=== PATIENT | male | born 1965 | race Caucasian/White ===

== ENCOUNTER 2018-05-29 17:40 | Inpatient (IN) ==
[2018-05-29] MEDS ORDERED: SODIUM CHLORIDE 0.9% 500 ML IV SCH (18:30)
--- NOTE | 2018-05-29 19:13 | XRay Report ---
SINGLE VIEW CHEST CLINICAL HISTORY: Fall. FINDINGS: An AP, portable, semierect chest radiograph is obtained. No prior studies are available for comparison at the time of dictation. The examination is degraded by portable technique and patient r otation. The heart is top normal for projection. The mediastinal contour is within normal limits. Th ere is bibasilar atelectasis. No airspace consolidation or large pleural effusion is identified. No p neumothorax is seen. The bony thorax is grossly intact. IMPRESSION: No acute cardiopulmonary abnormality. Electronically signed by: Kel Bradley M.D. 05/29/2018 7:11 PM
[2018-05-29] MEDS ORDERED: LORazepam 1 MG/2 ML VIAL IV STA ×2 (19:31→20:48)
[2018-05-29] MEDS: LORazepam 2 MG/4 ML VIAL ONE ×2 (19:31→19:34)
--- NOTE | 2018-05-29 19:34 | CT Scan Report ---
CT SCAN OF THE BRAIN WITHOUT IV CONTRAST CLINICAL HISTORY: Fall. Seizure. COMPARISON STUDY: No priors. TECHNIQUE: Unenhanced axial CT scan of the brain is performed from the vertex to the skull base. A d ose lowering technique was utilized adhering to the principles of ALARA. The skull base was scanned t wice due to motion artifact. CT DOSE: 1291.70 mGy.cm FINDINGS: Brain parenchyma: The brain parenchyma is normal in appearance. There is no hemorrhage, mass effect, or evidence of acute territorial ischemia by CT criteria. Bey-white matter differentiation is preser beverley. No extra-axial fluid collection is seen. Ventricles, sulci, cisterns: Normal in configuration. Intracranial vasculature: There is atherosclerotic calcification of the cavernous carotid arteries. Calvarium: No depressed calvarial fracture is identified. Soft tissues: There is a right supraorbital and periorbital soft tissue contusion. Sinuses and mastoids: The visualized paranasal sinuses are clear. The mastoid air cells are well pneu matized. Orbits: The bony orbits are grossly intact. IMPRESSION: 1. There is no hemorrhage, mass effect, or evidence of acute territorial ischemia by CT criteria. 2. Right frontal scalp injury. Electronically signed by: Kel Bradley M.D. 05/29/2018 7:32 PM
[2018-05-29 19:38] LABS: Alanine Aminotransferase 48 U/L (12-78); Albumin Level 4.1 gm/dl (3.4-5.0); Aspartate Aminotransferase 29 U/L (15-37); BUN Creatinine Ratio 10.9 (10-20); Blood Urea Nitrogen 9 mg/dl (7-18); Calcium 9.4 mg/dl (8.5-10.1); Carbon Dioxide 28 mmol/L (21-32); Chloride 103 mmol/L (98-107); Est GFR (African American) 118.6; Est GFR (Non-African American) 102.3; Glucose 107 mg/dl (70-99); Magnesium 2.4 mg/dl (1.8-2.4); Potassium 3.4 mmol/L (3.5-5.1); Sodium 137 mmol/L (136-145)
--- NOTE | 2018-05-29 19:38 | CT Scan Report ---
CT SCAN OF THE CERVICAL SPINE CLINICAL HISTORY: Fall. Seizure. COMPARISON STUDY: No priors TECHNIQUE: CT scan of the cervical spine is performed from the skull base to the upper thoracic spine . Images are reviewed in the axial, sagittal, and coronal planes. IV contrast was not administered fo r this examination. A dose lowering technique was utilized adhering to the principles of ALARA. FINDINGS: Skeletal structures: The skeletal structures are well mineralized. There is no evidence of fracture o r subluxation involving the cervical spine. Vertebral body height and alignment are maintained. There is straightening of the cervical lordosis. Anterior osteophytes are seen throughout. The odontoid pr ocess and lateral masses are intact. The atlantoaxial articulation is preserved noting mild productiv e degenerative change. The spinous processes appear intact. Intervertebral discs: Mild disc space narrowing is seen at C5-C6 and C6-C7. Central canal: Grossly patent. Soft tissues: The prevertebral and paraspinous soft tissues are within normal limits. There is athero sclerotic calcification of the carotid bulbs. Calvarium: The visualized calvarium at the skull base appears intact. Brain parenchyma: Partially visualized brain parenchyma the skull base is within normal limits. Sinuses and mastoids: The visualized paranasal sinuses are clear. The mastoid air cells are well pneu matized. Lung apices: Clear as visualized. IMPRESSION: There is no evidence of fracture or subluxation involving the cervical spine. Electronically signed by: Kel Bradley M.D. 05/29/2018 7:37 PM
[2018-05-29 19:41] LABS: Albumin Globulin Ratio 1.1 (0.9-2); Alkaline Phosphatase 95 U/L (45-117); Bilirubin,Total 0.5 mg/dl (0.2-1); Globulin 3.8 gm/dl (2.5-4.0); Total Protein 7.9 gm/dl (6.4-8.2)
[2018-05-29 19:46] LABS: Basophils # (auto) 0.03 K/uL (0-0.2); Basophils % (auto) 0.4 %; Eosinophils # (auto) 0.06 K/uL (0-0.5); Eosinophils % (auto) 0.7 %; Hematocrit (blood only) 42.6 % (42-52); Hemoglobin 14.7 g/dL (14.0-18.0); Immature Granulocytes # (auto) 0.02 K/uL (0.00-0.02); Immature Granulocytes % (auto) 0.2 %; Lymphocytes # (auto) 1.52 K/uL (1.2-3.4); Lymphocytes % (auto) 17.8 %; Mean Corpuscular Hgb Conc 34.5 g/dL (32-36); Mean Corpuscular Volume 98.6 fL (80-100); Mean Platelet Volume 10.3 fL (7.4-10.4); Monocytes # (auto) 0.84 K/uL (0.11-0.59); Monocytes % (auto) 9.8 %; Neutrophils # (auto) 6.09 K/uL (1.4-6.5); Neutrophils % (auto) 71.1 %; Platelet Count 322 K/uL (130-400); RDW Coefficient of Variation 15.5 % (11.5-14.5); RDW Standard Deviation 56.2 fL (36.4-46.3); Red Blood Count 4.32 M/uL (4.7-6.1); White Blood Count 8.56 K/uL (4.8-10.8)
--- NOTE | 2018-05-29 20:08 | Emergency Department Note ---
Entered by Yolie Paniagua acting as a scribe for Gonzalo Rosenbaum M.D. History of Present Illness General Chief complaint: Seizure Stated complaint: SEIZURE Time Seen by Provider: 05/29/18 18:14 Source: patient and other (EMS, [facility] Nurse) Mode of arrival: EMS Limitations: altered mental status History of Present Illness Provider complaint: Seizure Onset (ago): hour(s) less than 1 Location: head Severity: moderate Treatments prior to arrival: none Patient is a 52 year old male presenting to the ED via EMS with seizure that occurred [employer]. Per EMS, patient is reporting from [facility] where he was smoking outside on the patio and collapsed. Patient was reported to fall and his the left side of his head off the cement, and began to have a tonic clonic seizure for 1 minute. [facility] nurse notes that respiratory seemed as if patient was snoring. After the seizure, patient was reported to be weak and disoriented. Patient has not received medications after the seizure from [facility] and from EMS. Per nurse, patient has a history of alcohol abuse, seizures, schizophrenia , anxiety and depression. Nurse reports he has been scattered and not oriented since. Nurse reports patient has been at the [facility] since 05/20/18 and has been scoring low on alcohol withdrawal scale. When asked the year, patient responded with 1991 and 2001. HPI limited due to patients cognitive status. Home Medications Home Medications Medication Instructions Recorded Confirmed Type Mylanta 30 ml PO Q4H PRN 05/29/18 05/29/18 History acetaminophen 650 mg PO Q4H PRN 05/29/18 05/29/18 History bismuth subsalicylate 524 mg PO DIRECTED PRN 05/29/18 05/29/18 History [Pepto-Bismol] clonidine HCl 0.1 mg PO BID 05/29/18 05/29/18 History fluoxetine 40 mg PO QAM 05/29/18 05/29/18 History folic acid 1 mg PO QAM 05/29/18 05/29/18 History lithium carbonate 450 mg PO AMHS 05/29/18 05/29/18 History magnesium hydroxide [Milk of 80 meq PO DAILY PRN 05/29/18 05/29/18 History Magnesia] multivitamin 1 tab PO QAM 02/19/19 02/19/19 History quetiapine [Seroquel] 50 mg PO BID 05/29/18 05/29/18 History quetiapine [Seroquel] 800 mg PO HS 05/29/18 05/29/18 History thiamine HCl (vitamin B1) 100 mg PO QAM 05/29/18 05/29/18 History Allergies Allergy/AdvReac Type Severity Reaction Status Date / Time fluphenazine [From Prolixin] Allergy Unknown Unknown Verified 05/29/18 19:37 haloperidol [From Haldol] Allergy Unknown Unknown Verified 05/29/18 19:37 Past Med/Surg History Medical History Seizure (Chronic) Alcohol abuse (Chronic) Depression (Chronic) Anxiety (Chronic) Schizophrenia (Chronic) Family History Other Family history non-contributory Social History Smoking Status: Unknown if ever smoked Review of Systems See HPI for pertinent positives & negatives. Unobtainable due to cognitive status Physical Exam Vital Signs Vital Signs - 24 hr 05/29/18 17:46 05/29/18 17:54 05/29/18 17:55 Temperature 37.1 C Temperature Source Oral Sepsis Recent Fever Within 48 Hours No Sepsis Action Taken by Nursing No Action Required Pulse Rate 83 86 87 Pulse Rate from SpO2 Sensor 83 89 Respiratory Rate 19 28 H 26 H Respiratory Depth Shallow Respiratory Pattern Tachypnea Blood Pressure 154/95 H 154/95 H Blood Pressure Mean 114 114 Pulse Oximetry 96 96 95 Oxygen Delivery Method Room Air 05/29/18 18:00 05/29/18 18:04 05/29/18 18:10 Temperature Temperature Source Sepsis Recent Fever Within 48 Hours Sepsis Action Taken by Nursing Pulse Rate 85 83 Pulse Rate from SpO2 Sensor 85 84 Respiratory Rate 17 20 Respiratory Depth Respiratory Pattern Blood Pressure Blood Pressure Mean Pulse Oximetry 97 96 96 Oxygen Delivery Method Room Air 05/29/18 18:20 05/29/18 18:30 05/29/18 18:40 Temperature Temperature Source Sepsis Recent Fever Within 48 Hours Sepsis Action Taken by Nursing Pulse Rate 83 81 80 Pulse Rate from SpO2 Sensor 83 81 81 Respiratory Rate 18 21 21 Respiratory Depth Respiratory Pattern Blood Pressure Blood Pressure Mean Pulse Oximetry 97 98 98 Oxygen Delivery Method 05/29/18 18:50 05/29/18 19:00 05/29/18 19:10 Temperature Temperature Source Sepsis Recent Fever Within 48 Hours Sepsis Action Taken by Nursing Pulse Rate 80 78 82 Pulse Rate from SpO2 Sensor 79 Respiratory Rate 24 25 H 23 Respiratory Depth Respiratory Pattern Blood Pressure Blood Pressure Mean Pulse Oximetry 100 Oxygen Delivery Method 05/29/18 19:29 05/29/18 19:30 05/29/18 19:31 Temperature Temperature Source Sepsis Recent Fever Within 48 Hours Sepsis Action Taken by Nursing Pulse Rate 138 H 126 H 108 H Pulse Rate from SpO2 Sensor 109 H Respiratory Rate 19 33 H 22 Respiratory Depth Respiratory Pattern Blood Pressure 176/116 H Blood Pressure Mean 136 Pulse Oximetry 97 Oxygen Delivery Method 05/29/18 19:40 05/29/18 19:50 05/29/18 20:00 Temperature Temperature Source Sepsis Recent Fever Within 48 Hours Sepsis Action Taken by Nursing Pulse Rate 105 H 101 H 101 H Pulse Rate from SpO2 Sensor 105 H 102 H 102 H Respiratory Rate 32 H 17 14 Respiratory Depth Respiratory Pattern Blood Pressure Blood Pressure Mean Pulse Oximetry 96 96 97 Oxygen Delivery Method 05/29/18 20:10 05/29/18 20:17 05/29/18 20:20 Temperature Temperature Source Sepsis Recent Fever Within 48 Hours Sepsis Action Taken by Nursing Pulse Rate 96 H 93 H 97 H Pulse Rate from SpO2 Sensor 96 H 93 H 95 H Respiratory Rate 27 H 24 21 Respiratory Depth Respiratory Pattern Blood Pressure 115/106 H Blood Pressure Mean 109 Pulse Oximetry 97 94 96 Oxygen Delivery Method 05/29/18 20:30 05/29/18 20:40 05/29/18 20:50 Temperature Temperature Source Sepsis Recent Fever Within 48 Hours Sepsis Action Taken by Nursing Pulse Rate 93 H 91 H 86 Pulse Rate from SpO2 Sensor 92 H 91 H 87 Respiratory Rate 21 20 17 Respiratory Depth Respiratory Pattern Blood Pressure 138/80 Blood Pressure Mean 99 Pulse Oximetry 97 97 96 Oxygen Delivery Method 05/29/18 21:00 05/29/18 21:10 05/29/18 21:20 Temperature Temperature Source Sepsis Recent Fever Within 48 Hours Sepsis Action Taken by Nursing Pulse Rate 94 H 90 86 Pulse Rate from SpO2 Sensor 95 H 90 84 Respiratory Rate 18 31 H 24 Respiratory Depth Respiratory Pattern Blood Pressure 159/109 H Blood Pressure Mean 125 Pulse Oximetry 97 99 93 Oxygen Delivery Method 05/29/18 21:30 05/29/18 21:32 05/29/18 21:36 Temperature Temperature Source Sepsis Recent Fever Within 48 Hours Sepsis Action Taken by Nursing Pulse Rate 88 89 88 Pulse Rate from SpO2 Sensor 89 90 89 Respiratory Rate 19 19 22 Respiratory Depth Respiratory Pattern Blood Pressure 125/80 125/80 Blood Pressure Mean 95 95 Pulse Oximetry 95 95 96 Oxygen Delivery Method 05/29/18 21:40 05/29/18 21:50 05/29/18 22:00 Temperature Temperature Source Sepsis Recent Fever Within 48 Hours Sepsis Action Taken by Nursing Pulse Rate 89 91 H 92 H Pulse Rate from SpO2 Sensor 89 91 H 92 H Respiratory Rate 20 18 23 Respiratory Depth Respiratory Pattern Blood Pressure 121/86 Blood Pressure Mean 97 Pulse Oximetry 96 96 97 Oxygen Delivery Method 05/29/18 22:10 05/29/18 22:20 05/29/18 22:30 Temperature Temperature Source Sepsis Recent Fever Within 48 Hours Sepsis Action Taken by Nursing Pulse Rate 91 H 101 H 91 H Pulse Rate from SpO2 Sensor 92 H 101 H 90 Respiratory Rate 19 24 22 Respiratory Depth Respiratory Pattern Blood Pressure 123/83 Blood Pressure Mean 96 Pulse Oximetry 96 96 95 Oxygen Delivery Method GENERAL: Awake, alert, rambling HENT: Normocephalic, Oropharynx unremarkable. 3x5cm forehead contusion. EYES: Normal conjunctiva. Sclera non-icteric. NECK: Supple. No nuchal rigidity. RESPIRATORY: Clear to auscultation. No wheezes. Normal respiratory effort. CARDIAC: Normal rate. Normal rhythm. Extremities warm and well perfused. GI: Soft, non-distended. No tenderness to palpation. No rebound or guarding. No masses. RECTAL: Deferred. MUSCULOSKELETAL: Atraumatic. Chest examination reveals no tenderness. UPPER EXTREMITIES: Left knuckle abrasion, swollen bursa of right elbow with minimal tenderness LOWER EXTREMITIES: Calves are equal size bilaterally and non-tender. No edema NEURO: Normal sensorium. No facial droop. Moving all extremities, looking around , noncoherent answers SKIN: Warm and dry. No rash or jaundice noted. Course 1818: Past medical records reviewed. The patient was evaluated in room B11B, and a complete history and physical examination were performed. 1926: Alerted by patient of seizure, which lasted 1 minute in length. 1954: Discussed patient case with Dr. Tubbs 2005: Discussed case with Dr. John, who accepts patient for admission. Administered Medications Discontinued Medications Sodium Chloride (Nss) 500 mls @ 999 mls/hr IV .Q31M KEANU Stop: 05/29/18 19:00 Last Infusion: 05/29/18 20:44 Dose: 0 mls/hr Admin: 05/29/18 20:17 Dose: 999 mls/hr Lorazepam (Ativan) 1 mg in 2 mls @ 2 mls/min IV NOW STA Stop: 05/29/18 19:32 Last Admin: 05/29/18 19:32 Dose: 2 mls/min Levetiracetam 1,000 mg/ (Dextrose) 110 mls @ 440 mls/hr IV NOW STA Stop: 05/29/18 20:13 Last Infusion: 05/29/18 20:30 Dose: 0 mls/hr Admin: 05/29/18 20:17 Dose: 440 mls/hr Lorazepam (Ativan) 1 mg in 2 mls @ 2 mls/min IV NOW STA Stop: 05/29/18 20:49 Last Admin: 05/29/18 20:53 Dose: 2 mls/min Levetiracetam 1,000 mg/ (Dextrose) 110 mls @ 440 mls/hr IV NOW STA Stop: 05/29/18 21:02 Last Infusion: 05/29/18 21:20 Dose: 0 mls/hr Admin: 05/29/18 21:05 Dose: 440 mls/hr Lorazepam (Ativan) Confirm Administered Dose 2 mg .ROUTE .STK-MED ONE Stop: 05/29/18 19:29 Last Admin: 05/29/18 19:34 Dose: Not Given Medical Decision Making Differential Diagnosis Differential diagnosis: Etiologies such as infection, hypoglycemia, electrolyte abnormalities, cardiac sources, intracerebral event, trauma, toxicologic, neurologic, as well as others were entertained. Medical Records Attestation: I reviewed the patient's medical records. Home Medications Current Medication List: was personally reviewed by me Laboratory Data Attestation: I reviewed the patient's lab results. Result diagrams: 05/29/18 18:58 05/29/18 18:58 Lab Results 05/29/18 05/29/18 05/29/18 Range/Units 18:58 18:58 18:58 WBC 8.56 (4.8-10.8) K/uL RBC 4.32 L (4.7-6.1) M/uL Hgb 14.7 (14.0-18.0) g/dL Hct 42.6 (42-52) % MCV 98.6 (80-100) fL MCH 34.0 (25-34) pg MCHC 34.5 (32-36) g/dL RDW Std Deviation 56.2 H (36.4-46.3) fL RDW Coeff of Kai 15.5 H (11.5-14.5) % Plt Count 322 (130-400) K/uL MPV 10.3 (7.4-10.4) fL Immature Gran % (Auto) 0.2 % Neut % (Auto) 71.1 % Lymph % (Auto) 17.8 % [place] % (Auto) 9.8 % Eos % (Auto) 0.7 % Baso % (Auto) 0.4 % Immature Gran # (Auto) 0.02 (0.00-0.02) K/uL Neut # (Auto) 6.09 (1.4-6.5) K/uL Lymph # (Auto) 1.52 (1.2-3.4) K/uL [place] # (Auto) 0.84 H (0.11-0.59) K/uL Eos # (Auto) 0.06 (0-0.5) K/uL Baso # (Auto) 0.03 (0-0.2) K/uL Sodium 137 (136-145) mmol/L Potassium 3.4 L (3.5-5.1) mmol/L Chloride 103 (98-107) mmol/L Carbon Dioxide 28 (21-32) mmol/L Anion Gap 6.0 (3-11) BUN 9 (7-18) mg/dl Creatinine 0.78 (0.6-1.4) mg/dl Est Cr Clr Drug Dosing Not Reportable Est GFR ( Amer) 118.6 Est GFR (Non-Af Amer) 102.3 BUN/Creatinine Ratio 10.9 (10-20) Glucose 107 H (70-99) mg/dl POC Glucose (70-99) Calcium 9.4 (8.5-10.1) mg/dl Magnesium 2.4 (1.8-2.4) mg/dl Total Bilirubin 0.5 (0.2-1) mg/dl AST 29 (15-37) U/L ALT 48 (12-78) U/L Alkaline Phosphatase 95 (45-117) U/L Total Protein 7.9 (6.4-8.2) gm/dl Albumin 4.1 (3.4-5.0) gm/dl Globulin 3.8 (2.5-4.0) gm/dl Albumin/Globulin Ratio 1.1 (0.9-2) Urine Color Urine Appearance (Clear) Urine pH (4.5-7.5) Ur Specific [place] (1.000-1.030) Urine Protein (Negative) Urine Glucose (UA) (Negative) Urine Ketones (Negative) Urine Blood (Negative) Urine Nitrite (Negative) Urine Bilirubin (Negative) Urine Urobilinogen (Negative) Ur Leukocyte Esterase (Negative) Urine Opiates Screen (Neg) Ur Methadone, Qual (Neg) Urine Barbiturates (Neg) Ur Phencyclidine (PCP) (Neg) U Amphetamin/Meth Scrn (Neg) MDMA (Ecstasy) Screen (Neg) U Benzodiazepines Scrn (Neg) [place] (0.6-1.2) mmol/L Ur Cocaine Metabolite (Neg) U Marijuana (THC) Screen (Neg) Ethyl Alcohol mg/dL < 3.0 (0-3) mg/dl 05/29/18 05/29/18 05/29/18 Range/Units 18:58 19:38 19:50 WBC (4.8-10.8) K/uL RBC (4.7-6.1) M/uL Hgb (14.0-18.0) g/dL Hct (42-52) % MCV (80-100) fL MCH (25-34) pg MCHC (32-36) g/dL RDW Std Deviation (36.4-46.3) fL RDW Coeff of Kai (11.5-14.5) % Plt Count (130-400) K/uL MPV (7.4-10.4) fL Immature Gran % (Auto) % Neut % (Auto) % Lymph % (Auto) % [place] % (Auto) % Eos % (Auto) % Baso % (Auto) % Immature Gran # (Auto) (0.00-0.02) K/uL Neut # (Auto) (1.4-6.5) K/uL Lymph # (Auto) (1.2-3.4) K/uL [place] # (Auto) (0.11-0.59) K/uL Eos # (Auto) (0-0.5) K/uL Baso # (Auto) (0-0.2) K/uL Sodium (136-145) mmol/L Potassium (3.5-5.1) mmol/L Chloride (98-107) mmol/L Carbon Dioxide (21-32) mmol/L Anion Gap (3-11) BUN (7-18) mg/dl Creatinine (0.6-1.4) mg/dl Est Cr Clr Drug Dosing Est GFR ( Amer) Est GFR (Non-Af Amer) BUN/Creatinine Ratio (10-20) Glucose (70-99) mg/dl POC Glucose 118 H (70-99) Calcium (8.5-10.1) mg/dl Magnesium (1.8-2.4) mg/dl Total Bilirubin (0.2-1) mg/dl AST (15-37) U/L ALT (12-78) U/L Alkaline Phosphatase (45-117) U/L Total Protein (6.4-8.2) gm/dl Albumin (3.4-5.0) gm/dl Globulin (2.5-4.0) gm/dl Albumin/Globulin Ratio (0.9-2) Urine Color Urine Appearance (Clear) Urine pH (4.5-7.5) Ur Specific [place] (1.000-1.030) Urine Protein (Negative) Urine Glucose (UA) (Negative) Urine Ketones (Negative) Urine Blood (Negative) Urine Nitrite (Negative) Urine Bilirubin (Negative) Urine Urobilinogen (Negative) Ur Leukocyte Esterase (Negative) Urine Opiates Screen Neg (Neg) Ur Methadone, Qual Neg (Neg) Urine Barbiturates Neg (Neg) Ur Phencyclidine (PCP) Neg (Neg) U Amphetamin/Meth Scrn Neg (Neg) MDMA (Ecstasy) Screen Neg (Neg) U Benzodiazepines Scrn Neg (Neg) [place] < 0.2 L (0.6-1.2) mmol/L Ur Cocaine Metabolite Neg (Neg) U Marijuana (THC) Screen Neg (Neg) Ethyl Alcohol mg/dL (0-3) mg/dl 05/29/18 Range/Units 19:50 WBC (4.8-10.8) K/uL RBC (4.7-6.1) M/uL Hgb (14.0-18.0) g/dL Hct (42-52) % MCV (80-100) fL MCH (25-34) pg MCHC (32-36) g/dL RDW Std Deviation (36.4-46.3) fL RDW Coeff of Kai (11.5-14.5) % Plt Count (130-400) K/uL MPV (7.4-10.4) fL Immature Gran % (Auto) % Neut % (Auto) % Lymph % (Auto) % [place] % (Auto) % Eos % (Auto) % Baso % (Auto) % Immature Gran # (Auto) (0.00-0.02) K/uL Neut # (Auto) (1.4-6.5) K/uL Lymph # (Auto) (1.2-3.4) K/uL [place] # (Auto) (0.11-0.59) K/uL Eos # (Auto) (0-0.5) K/uL Baso # (Auto) (0-0.2) K/uL Sodium (136-145) mmol/L Potassium (3.5-5.1) mmol/L Chloride (98-107) mmol/L Carbon Dioxide (21-32) mmol/L Anion Gap (3-11) BUN (7-18) mg/dl Creatinine (0.6-1.4) mg/dl Est Cr Clr Drug Dosing Est GFR ( Amer) Est GFR (Non-Af Amer) BUN/Creatinine Ratio (10-20) Glucose (70-99) mg/dl POC Glucose (70-99) Calcium (8.5-10.1) mg/dl Magnesium (1.8-2.4) mg/dl Total Bilirubin (0.2-1) mg/dl AST (15-37) U/L ALT (12-78) U/L Alkaline Phosphatase (45-117) U/L Total Protein (6.4-8.2) gm/dl Albumin (3.4-5.0) gm/dl Globulin (2.5-4.0) gm/dl Albumin/Globulin Ratio (0.9-2) Urine Color Yellow Urine Appearance Clear (Clear) Urine pH 7.0 (4.5-7.5) Ur Specific [place] 1.015 (1.000-1.030) Urine Protein Negative (Negative) Urine Glucose (UA) Negative (Negative) Urine Ketones Negative (Negative) Urine Blood Negative (Negative) Urine Nitrite Negative (Negative) Urine Bilirubin Negative (Negative) Urine Urobilinogen Negative (Negative) Ur Leukocyte Esterase Negative (Negative) Urine Opiates Screen (Neg) Ur Methadone, Qual (Neg) Urine Barbiturates (Neg) Ur Phencyclidine (PCP) (Neg) U Amphetamin/Meth Scrn (Neg) MDMA (Ecstasy) Screen (Neg) U Benzodiazepines Scrn (Neg) [place] (0.6-1.2) mmol/L Ur Cocaine Metabolite (Neg) U Marijuana (THC) Screen (Neg) Ethyl Alcohol mg/dL (0-3) mg/dl Imaging Data Radiologist's Impression: SINGLE VIEW CHEST CLINICAL HISTORY: Fall. FINDINGS: An AP, portable, semierect chest radiograph is obtained. No prior studies are available for comparison at the time of dictation. The examination is degraded by portable technique and patient rotation. The heart is top normal for projection. The mediastinal contour is within normal limits. There is bibasilar atelectasis. No airspace consolidation or large pleural effusion is identified. No pneumothorax is seen. The bony thorax is grossly intact. IMPRESSION: No acute cardiopulmonary abnormality. Electronically signed by: Kel Bradley M.D. 05/29/2018 7:[address] SCAN OF THE BRAIN WITHOUT IV CONTRAST CLINICAL HISTORY: Fall. Seizure. COMPARISON STUDY: No priors. TECHNIQUE: Unenhanced axial CT scan of the brain is performed from the vertex to the skull base. A dose lowering technique was utilized adhering to the principles of ALARA. The skull base was scanned twice due to motion artifact. CT DOSE: 1291.70 mGy.cm FINDINGS: Brain parenchyma: The brain parenchyma is normal in appearance. There is no hemorrhage, mass effect, or evidence of acute territorial ischemia by CT criteria. Bey-white matter differentiation is preserved. No extra-axial fluid collection is seen. Ventricles, sulci, cisterns: Normal in configuration. Intracranial vasculature: There is atherosclerotic calcification of the cavernous carotid arteries. Calvarium: No depressed calvarial fracture is identified. Soft tissues: There is a right supraorbital and periorbital soft tissue contusion. Sinuses and mastoids: The visualized paranasal sinuses are clear. The mastoid air cells are well pneumatized. Orbits: The bony orbits are grossly intact. IMPRESSION: 1. There is no hemorrhage, mass effect, or evidence of acute territorial ischemia by CT criteria. 2. Right frontal scalp injury. Electronically signed by: Kel Bradley M.D. 05/29/2018 7:[address] SCAN OF THE CERVICAL SPINE CLINICAL HISTORY: Fall. Seizure. COMPARISON STUDY: No priors TECHNIQUE: CT scan of the cervical spine is performed from the skull base to the upper thoracic spine. Images are reviewed in the axial, sagittal, and coronal planes. IV contrast was not administered for this examination. A dose lowering technique was utilized adhering to the principles of ALARA. FINDINGS: Skeletal structures: The skeletal structures are well mineralized. There is no evidence of fracture or subluxation involving the cervical spine. Vertebral body height and alignment are maintained. There is straightening of the cervical lordosis. Anterior osteophytes are seen throughout. The odontoid process and lateral masses are intact. The atlantoaxial articulation is preserved noting mild productive degenerative change. The spinous processes appear intact. Intervertebral discs: Mild disc space narrowing is seen at C5-C6 and C6-C7. Central canal: Grossly patent. Soft tissues: The prevertebral and paraspinous soft tissues are within normal limits. There is atherosclerotic calcification of the carotid bulbs. Calvarium: The visualized calvarium at the skull base appears intact. Brain parenchyma: Partially visualized brain parenchyma the skull base is within normal limits. Sinuses and mastoids: The visualized paranasal sinuses are clear. The mastoid air cells are well pneumatized. Lung apices: Clear as visualized. IMPRESSION: There is no evidence of fracture or subluxation involving the cervical spine. Electronically signed by: Kel Bradley M.D. 05/29/2018 7:37 PM ECG Data Attestation: I personally reviewed and interpreted this ECG as follows: Indication: altered mental status Rate (beats per minute): 81 Rhythm: normal sinus Findings: + other (normal intervals); no PVC and no ST elevation Blood Pressure Blood Pressure Findings: Elevated blood pressure Blood Pressure Disposition: elevated BP felt to be situational MDM Narrative Patient is a 52-year-old gentleman history of schizophrenia reported seizures, alcohol abuse who presents from the inpatient [facility] facility today after having a seizure. Patient evidently collapsed there to the ground and had a 1-2 -minute seizure. Self terminated. Patient since then has been rambling and somewhat manic. Not making much sense. Does have significant forehead contusion/abrasion. Some abrasions on the right hand. No other significant traumas noted. It does have a enlarged bursa on his right elbow. Does not appear meningitic. Basic labs, chest x-ray, head CT and cervical spine CT were completed. This showed no acute fracture or intracranial injury. Chest x-ray was unremarkable. Laboratory studies do not show any significant electrolyte abnormality some trace hypokalemia. No alcohol level noted. Kidney function appears normal. Patient mildly hypertensive but not tachycardic and reviewing facility paperwork does not not appear to be in receiving a significant amount of Ativan over the last several days or scoring high for alcohol withdrawal. Has been there 10 days. Finish some Ativan taper on the Does not appear to be on any seizure medication from the records available. While here the patient did have another less than 1 minute tonic-clonic seizure self terminated. As it was determined he did receive about a milligram of Ativan. Discussed with neurology. This could possibly related to his high dosage of Seroquel and fluoxetine. Given a gram of Keppra IV to start with here tonight. Given that he is in multiple episodes and still not quite back to his baseline discussed with the hospitalist for admission. Patient was initially postictal and then began rambling. Given some additional ativan and hospitalist wished for additional keppra. Patient resting after this. Impression & Plan Seizures Discharge Plan Visit Data Chief Complaint: Seizure Stated Complaint: SEIZURE ED Provider: Gonzalo Rosenbaum Discharge Problem: Seizures Forms Stand Alone Forms: My [facility] Prescriptions Prescriptions: No Action multivitamin Tablet 1 tab PO QAM RF: 0 thiamine HCl (vitamin B1) 100 mg Tablet 100 mg PO QAM RF: 0 folic acid 1 mg Tablet 1 mg PO QAM RF: 0 fluoxetine 20 mg Capsule 40 mg PO QAM RF: 0 clonidine HCl 0.1 mg Tablet 0.1 mg PO BID RF: 0 lithium carbonate 450 mg Tablet Extended Release 450 mg PO AMHS RF: 0 quetiapine [Seroquel] 50 mg Tablet 50 mg PO BID RF: 0 quetiapine [Seroquel] 400 mg Tablet 800 mg PO HS RF: 0 acetaminophen 325 mg Tablet 650 mg PO Q4H PRN (Reason: Pain) RF: 0 magnesium hydroxide [Milk of Magnesia] 400 mg/5 mL Suspension 80 meq PO DAILY PRN (Reason: Constipation) RF: 0 bismuth subsalicylate [Pepto-Bismol] 262 mg Tablet,Chewable 524 mg PO DIRECTED PRN (Reason: Diarrhea) RF: 0 Mylanta liquid 30 ml PO Q4H PRN (Reason: Gastric Distress) RF: 0 The scribe's documentation has been prepared under my direction and personally reviewed by me in its entirety. I confirm that the note above accurately reflects all work, treatment, procedures, and medical decision making performed by me.
[2018-05-29 21:26] LABS: Appearance Urine Clear (Clear); Bilirubin Urine Negative (Negative); Color Urine Yellow; Glucose Urine UA Negative (Negative); Ketones Urine Negative (Negative); Leukocyte Esterase Urine Negative (Negative); Nitrite Urine Negative (Negative); Protein Urine Negative (Negative); Specific Gravity Urine 1.015 (1.000-1.030); Urobilinogen Urine Negative (Negative)
[2018-05-29 21:58] LABS: Amphetamines+Metham, Urine Neg (Neg); Barbiturates, Urine Neg (Neg); Benzodiazepine, Urine Neg (Neg); Cocaine, Urine Neg (Neg); MDMA (Ecstacy), Urine Neg (Neg); Methadone, Urine Neg (Neg); Opiate, Urine Neg (Neg); Phencyclidine, Urine Neg (Neg)
[2018-05-29] MEDS ORDERED: POLYETHYLENE (MIRALAX) 17 GM PACK PO PRN (23:06)
[2018-05-29] MEDS ORDERED: ACETAMINOPHEN 325 MG TAB PO PRN (23:06)
[2018-05-29] MEDS ORDERED: MAGNESIUM HYDROXIDE SUSP 30 ML UDC PO PRN (23:06)
[2018-05-29] MEDS ORDERED: BISMUTH SUBSALICYLATE 262 MG CHEW PO PRN (23:06)
[2018-05-29] MEDS ORDERED: ACETAMINOPHEN 1000 MG/100 ML IV IV PRN (23:06)
[2018-05-29] MEDS ORDERED: ONDANSETRON INJ 2 MG/ML 2 ML VIAL IV PRN (23:06)
[2018-05-29] MEDS ORDERED: LORazepam 1 MG/2 ML VIAL IV PRN (23:06)
[2018-05-29] MEDS ORDERED: ALUMINUM/MAGNESIUM/SIMETH (MAALOX MAX) 30 ML UDC PO PRN (23:06)
--- NOTE | 2018-05-30 00:17 | History & Physical Report ---
Date of Service May 30, 2018 The patient was seen and examined on 05/29/2018 Assessment & Plan (1) Seizures: New seizures, with reported history of seizure disorder-- Given Keppra 1000 mg IV in the ED, and will continue Keppra 1000 mg IV every 12 hours. Lorazepam 1 mg IV every 15 minutes as needed breakthrough seizures. CT of head and cervical spine were negative. Would order an MRI in the morning once patient is stable and seizures controlled. Order an EEG. Consult neurology Dr. Tubbs. Present on Admission?: Yes (2) Alcohol abuse: Continue thiamine. He has been at the [facility] for 9 days, so unlikely any withdrawal possibility. Present on Admission?: Yes (3) Schizophrenia: Schizophrenia with anxiety and depression-- Continue clonidine, fluoxetine, lithium carbonate, and quetapine. Consult psychiatry. Present on Admission?: Yes (4) Depression: See above Present on Admission?: Yes (5) Anxiety: See above Present on Admission?: Yes History of Present Illness Chief Complaint: The patient was brought to the emergency department by EMS, after being noted to have a seizure while outside of [facility] smoking a cigarette. Primary Care Provider: Temi Mejia The patient is a 52-year-old male presently admitted to [facility] on [address], with a past medical history including seizure disorder and schizophrenia, who was noted to have a seizure while outside smoking a cigarette. It is unknown how long ago his last seizure was, but is not currently taking seizure medications. He was in his usual state of health up until this event. In the emergency department, consult was made by Dr. Rosenbaum with neurology Dr. Tubbs, and the patient was given Keppra 1000 mg IV, with plans to admit the patient on Keppra thousand milligrams IV every 12 hours. Patient was noted to have significantly nonstop speech, which is not usual for him, and he was given Lorazepam 1 mg IV by the ED staff, and shortly thereafter went to sleep. Allergies Allergy/AdvReac Type Severity Reaction Status Date / Time fluphenazine [From Prolixin] Allergy Unknown Unknown Verified 05/29/18 19:37 haloperidol [From Haldol] Allergy Unknown Unknown Verified 05/29/18 19:37 Home Medications Home Medications Medication Instructions Recorded Confirmed Type Mylanta 30 ml PO Q4H PRN 05/29/18 05/29/18 History acetaminophen 650 mg PO Q4H PRN 05/29/18 05/29/18 History bismuth subsalicylate 524 mg PO DIRECTED PRN 05/29/18 05/29/18 History [Pepto-Bismol] clonidine HCl 0.1 mg PO BID 05/29/18 05/29/18 History fluoxetine 40 mg PO QAM 05/29/18 05/29/18 History folic acid 1 mg PO QAM 05/29/18 05/29/18 History lithium carbonate 450 mg PO AMHS 05/29/18 05/29/18 History magnesium hydroxide [Milk of 80 meq PO DAILY PRN 05/29/18 05/29/18 History Magnesia] multivitamin 1 tab PO QAM 05/29/18 05/29/18 History quetiapine [Seroquel] 50 mg PO BID 05/29/18 05/29/18 History quetiapine [Seroquel] 800 mg PO HS 05/29/18 05/29/18 History thiamine HCl (vitamin B1) 100 mg PO QAM 05/29/18 05/29/18 History Past Med/Surg History Medical History Seizure (Chronic) Alcohol abuse (Chronic) Depression (Chronic) Anxiety (Chronic) Schizophrenia (Chronic) Family History Other Family history non-contributory Social History Smoking Status: Unknown if ever smoked Review of Systems Review of systems is significantly limited due to patient's mental state. Physical Exam 2 Vital Signs (Past 24 Hours): Last Vital Signs Temp 36.7 C 05/29/18 23:14 Pulse 91 H 05/29/18 23:14 Resp 18 05/29/18 23:14 BP 123/78 05/29/18 23:14 Pulse Ox 96 05/29/18 23:14 Physical Exam: The patient is awake, rambling on incoherently, but every now and then stopping to say a coherent word, normocephalic and atraumatic, lying in bed and in no acute distress. HEENT--PERRL, EOMI, mucous membranes and oropharynx normal. Neck--supple. No JVD. No bruits. Thyroid normal, trachea midline, no adenopathy. Heart--normal S1 and S2. No murmurs, rubs or gallops. Lungs--clear bilaterally, no respiratory distress, no accessory muscle use. Abdomen--normal bowel sounds and soft. Nontender. Nondistended. Extremities--no cyanosis or clubbing. No edema. There are good distal pulses b/ l. Dermatologic--normal skin turgor, normal color, no abnormal lymph nodes, no rash. Neurologic--cranial nerves II through XII grossly intact. Rheumatologic--normal range of motion. Psychiatric--as noted above. Results & Data Laboratory Results Laboratory Results WBC 8.56 K/uL (4.8-10.8) 05/29/18 18:58 RBC 4.32 M/uL (4.7-6.1) L 05/29/18 18:58 Hgb 14.7 g/dL (14.0-18.0) 05/29/18 18:58 Hct 42.6 % (42-52) 05/29/18 18:58 MCV 98.6 fL (80-100) 05/29/18 18:58 MCH 34.0 pg (25-34) 05/29/18 18:58 MCHC 34.5 g/dL (32-36) 05/29/18 18:58 RDW Std Deviation 56.2 fL (36.4-46.3) H 05/29/18 18:58 RDW Coeff of Kai 15.5 % (11.5-14.5) H 05/29/18 18:58 Plt Count 322 K/uL (130-400) 05/29/18 18:58 MPV 10.3 fL (7.4-10.4) 05/29/18 18:58 Immature Gran % (Auto) 0.2 % 05/29/18 18:58 Neut % (Auto) 71.1 % 05/29/18 18:58 Lymph % (Auto) 17.8 % 05/29/18 18:58 Wirt % (Auto) 9.8 % 05/29/18 18:58 Eos % (Auto) 0.7 % 05/29/18 18:58 Baso % (Auto) 0.4 % 05/29/18 18:58 Immature Gran # (Auto) 0.02 K/uL (0.00-0.02) 05/29/18 18:58 Neut # (Auto) 6.09 K/uL (1.4-6.5) 05/29/18 18:58 Lymph # (Auto) 1.52 K/uL (1.2-3.4) 05/29/18 18:58 Wirt # (Auto) 0.84 K/uL (0.11-0.59) H 05/29/18 18:58 Eos # (Auto) 0.06 K/uL (0-0.5) 05/29/18 18:58 Baso # (Auto) 0.03 K/uL (0-0.2) 05/29/18 18:58 Sodium 137 mmol/L (136-145) 05/29/18 18:58 Potassium 3.4 mmol/L (3.5-5.1) L 05/29/18 18:58 Chloride 103 mmol/L (98-107) 05/29/18 18:58 Carbon Dioxide 28 mmol/L (21-32) 05/29/18 18:58 Anion Gap 6.0 (3-11) 05/29/18 18:58 BUN 9 mg/dl (7-18) 05/29/18 18:58 Creatinine 0.78 mg/dl (0.6-1.4) 05/29/18 18:58 Est Cr Clr Drug Dosing Not Reportable 05/29/18 18:58 Est GFR ( Amer) 118.6 05/29/18 18:58 Est GFR (Non-Af Amer) 102.3 05/29/18 18:58 BUN/Creatinine Ratio 10.9 (10-20) 05/29/18 18:58 Glucose 107 mg/dl (70-99) H 05/29/18 18:58 POC Glucose 118 (70-99) H 05/29/18 19:38 Calcium 9.4 mg/dl (8.5-10.1) 05/29/18 18:58 Magnesium 2.4 mg/dl (1.8-2.4) 05/29/18 18:58 Total Bilirubin 0.5 mg/dl (0.2-1) 05/29/18 18:58 AST 29 U/L (15-37) 05/29/18 18:58 ALT 48 U/L (12-78) 05/29/18 18:58 Alkaline Phosphatase 95 U/L (45-117) 05/29/18 18:58 Total Protein 7.9 gm/dl (6.4-8.2) 05/29/18 18:58 Albumin 4.1 gm/dl (3.4-5.0) 05/29/18 18:58 Globulin 3.8 gm/dl (2.5-4.0) 05/29/18 18:58 Albumin/Globulin Ratio 1.1 (0.9-2) 05/29/18 18:58 Urine Color Yellow 05/29/18 19:50 Urine Appearance Clear (Clear) 05/29/18 19:50 Urine pH 7.0 (4.5-7.5) 05/29/18 19:50 Ur Specific [place] 1.015 (1.000-1.030) 05/29/18 19:50 Urine Protein Negative (Negative) 05/29/18 19:50 Urine Glucose (UA) Negative (Negative) 05/29/18 19:50 Urine Ketones Negative (Negative) 05/29/18 19:50 Urine Blood Negative (Negative) 05/29/18 19:50 Urine Nitrite Negative (Negative) 05/29/18 19:50 Urine Bilirubin Negative (Negative) 05/29/18 19:50 Urine Urobilinogen Negative (Negative) 05/29/18 19:50 Ur Leukocyte Esterase Negative (Negative) 05/29/18 19:50 Urine Opiates Screen Neg (Neg) 05/29/18 19:50 Ur Methadone, Qual Neg (Neg) 05/29/18 19:50 Urine Barbiturates Neg (Neg) 05/29/18 19:50 Ur Phencyclidine (PCP) Neg (Neg) 05/29/18 19:50 U Amphetamin/Meth Scrn Neg (Neg) 05/29/18 19:50 MDMA (Ecstasy) Screen Neg (Neg) 05/29/18 19:50 U Benzodiazepines Scrn Neg (Neg) 05/29/18 19:50 [place] < 0.2 mmol/L (0.6-1.2) L 05/29/18 18:58 Ur Cocaine Metabolite Neg (Neg) 05/29/18 19:50 U Marijuana (THC) Screen Neg (Neg) 05/29/18 19:50 Ethyl Alcohol mg/dL < 3.0 mg/dl (0-3) 05/29/18 18:58 Diagnostic Findings [place], [place] [phone] CT Scan Report Patient: HANANE RÍOSAdmit Date: 05/29/18 MR#: [id number]: [facility] Acct ID:[id number]: [address] Date: [address] Zip: [place] [address] Age: 52Location: ED Sex: M Room/Bed: Att Phy: Diagnosis: SEIZURE [facility]: [facility] Fam Phy: Interpreting Phy: Kel Bradley MD Admit Phy: Ordering Phy: Gonzalo Rosenbaum M.D. cc: ~ CT SCAN OF THE CERVICAL SPINE CLINICAL HISTORY: Fall. Seizure. COMPARISON STUDY: No priors TECHNIQUE: CT scan of the cervical spine is performed from the skull base to the upper thoracic spine. Images are reviewed in the axial, sagittal, and coronal planes. IV contrast was not administered for this examination. A dose lowering technique was utilized adhering to the principles of ALARA. FINDINGS: Skeletal structures: The skeletal structures are well mineralized. There is no evidence of fracture or subluxation involving the cervical spine. Vertebral body height and alignment are maintained. There is straightening of the cervical lordosis. Anterior osteophytes are seen throughout. The odontoid process and lateral masses are intact. The atlantoaxial articulation is preserved noting mild productive degenerative change. The spinous processes appear intact. Intervertebral discs: Mild disc space narrowing is seen at C5-C6 and C6-C7. Central canal: Grossly patent. Soft tissues: The prevertebral and paraspinous soft tissues are within normal limits. There is atherosclerotic calcification of the carotid bulbs. Calvarium: The visualized calvarium at the skull base appears intact. Brain parenchyma: Partially visualized brain parenchyma the skull base is within normal limits. Sinuses and mastoids: The visualized paranasal sinuses are clear. The mastoid air cells are well pneumatized. Lung apices: Clear as visualized. IMPRESSION: There is no evidence of fracture or subluxation involving the cervical spine. Electronically signed by: Kel Bradley M.D. 05/29/2018 7:37 PM Dictated: 05/29/181932 Transcribed: 05/29/181932 [facility], [place] [phone] XRay Report Patient: HANANE RÍOSAdmit Date: 05/29/18 MR#: [id number]: [facility] Acct ID:[id number]: [address] Date: 1965[facility] Zip: [place] [address] Age: 52Location: ED Sex: M Room/Bed: Att Phy: Diagnosis: SEIZURE Jessica Phy: [facility]: [facility] Fam Phy: Interpreting Phy: Kel Bradley MD Admit Phy: Ordering Phy: Gonzalo Rosenbaum M.D. cc: ~ SINGLE VIEW CHEST CLINICAL HISTORY: Fall. FINDINGS: An AP, portable, semierect chest radiograph is obtained. No prior studies are available for comparison at the time of dictation. The examination is degraded by portable technique and patient rotation. The heart is top normal for projection. The mediastinal contour is within normal limits. There is bibasilar atelectasis. No airspace consolidation or large pleural effusion is identified. No pneumothorax is seen. The bony thorax is grossly intact. IMPRESSION: No acute cardiopulmonary abnormality. Electronically signed by: Kel Bradley M.D. 05/29/2018 7:11 PM Dictated: 05/29/181909 Transcribed: 05/29/181909 [facility], [place] [phone] CT Scan Report Patient: HANANE RÍOSAdmit Date: 05/29/18 MR#: [id number]: [facility] Acct ID:[id number]: [address] Date: 1965[facility] Zip: [place] [address] Age: 52Location: ED Sex: M Room/Bed: Att Phy: Diagnosis: SEIZURE Jessica Phy: [facility]: 05/29/18 Fam Phy: Interpreting Phy: Kel Bradley MD Admit Phy: Ordering Phy: Gonzalo Rosenbaum M.D. cc: ~ CT SCAN OF THE BRAIN WITHOUT IV CONTRAST CLINICAL HISTORY: Fall. Seizure. COMPARISON STUDY: No priors. TECHNIQUE: Unenhanced axial CT scan of the brain is performed from the vertex to the skull base. A dose lowering technique was utilized adhering to the principles of ALARA. The skull base was scanned twice due to motion artifact. CT DOSE: 1291.70 mGy.cm FINDINGS: Brain parenchyma: The brain parenchyma is normal in appearance. There is no hemorrhage, mass effect, or evidence of acute territorial ischemia by CT criteria. Bey-white matter differentiation is preserved. No extra-axial fluid collection is seen. Ventricles, sulci, cisterns: Normal in configuration. Intracranial vasculature: There is atherosclerotic calcification of the cavernous carotid arteries. Calvarium: No depressed calvarial fracture is identified. Soft tissues: There is a right supraorbital and periorbital soft tissue contusion. Sinuses and mastoids: The visualized paranasal sinuses are clear. The mastoid air cells are well pneumatized. Orbits: The bony orbits are grossly intact. IMPRESSION: 1. There is no hemorrhage, mass effect, or evidence of acute territorial ischemia by CT criteria. 2. Right frontal scalp injury. Electronically signed by: Kel Bradley M.D. 05/29/2018 7:32 PM Dictated: 05/29/181924 Transcribed: 05/29/181924 Code Status & VTE Plan Code Status Full code VTE Prophylaxis Plan VTE Prophylaxis will be ordered: Yes
[2018-05-30] MEDS: cloNIDine HCl 0.1 MG TAB PO SCH ×3 (01:28→16:07)
[2018-05-30 08:19] LABS: Basophils # (auto) 0.03 K/uL (0-0.2); Basophils % (auto) 0.4 %; Eosinophils # (auto) 0.09 K/uL (0-0.5); Eosinophils % (auto) 1.3 %; Hematocrit (blood only) 40.8 % (42-52); Hemoglobin 14.1 g/dL (14.0-18.0); Immature Granulocytes # (auto) 0.01 K/uL (0.00-0.02); Immature Granulocytes % (auto) 0.1 %; Lymphocytes # (auto) 1.43 K/uL (1.2-3.4); Lymphocytes % (auto) 20.7 %; Mean Corpuscular Hgb Conc 34.6 g/dL (32-36); Mean Corpuscular Volume 96.5 fL (80-100); Mean Platelet Volume 10.1 fL (7.4-10.4); Monocytes # (auto) 0.84 K/uL (0.11-0.59); Monocytes % (auto) 12.1 %; Neutrophils # (auto) 4.52 K/uL (1.4-6.5); Neutrophils % (auto) 65.4 %; Platelet Count 300 K/uL (130-400); RDW Coefficient of Variation 15.3 % (11.5-14.5); RDW Standard Deviation 53.9 fL (36.4-46.3); Red Blood Count 4.23 M/uL (4.7-6.1); White Blood Count 6.92 K/uL (4.8-10.8)
[2018-05-30 08:30] LABS: Partial Thromboplastin Ratio 0.9; Partial Thromboplastin Time 24.5 Seconds (21.0-31.0); Prothrombin Time 10.4 Seconds (9.0-12.0)
[2018-05-30 08:49] LABS: Albumin Level 3.5 gm/dl (3.4-5.0); BUN Creatinine Ratio 10.7 (10-20); Calcium 8.8 mg/dl (8.5-10.1); Creatinine Clr Calc Pharmacy 138.3 ml/min; Est GFR (African American) 126.3; Est GFR (Non-African American) 108.9; Potassium 3.6 mmol/L (3.5-5.1)
[2018-05-30 08:52] LABS: Albumin Globulin Ratio 1.1 (0.9-2); Bilirubin,Total 0.6 mg/dl (0.2-1); Globulin 3.3 gm/dl (2.5-4.0); Total Protein 6.8 gm/dl (6.4-8.2)
[2018-05-30] MEDS: FLUOXETINE HCL 20 MG CAP PO SCH (08:58)
[2018-05-30] MEDS: THIAMINE HCL 100 MG TAB PO SCH (08:58)
[2018-05-30] MEDS: MULTIVITAMIN TAB PO SCH (08:59)
[2018-05-30] MEDS: LITHIUM CARBONATE 450 MG TABCR PO SCH ×2 (08:59→20:42)
[2018-05-30] MEDS ORDERED: FOLIC ACID 1 MG TAB PO SCH (09:00)
[2018-05-30] MEDS: QUETIAPINE FUMARATE 25 MG TABLET PO SCH ×2 (09:00→13:24)
[2018-05-30] MEDS ORDERED: INFLUENZA VIRUS QUAD VACCINE 0.5 ML SYR IM ONE (10:00)
[2018-05-30] MEDS ORDERED: INFLUENZA ADMINISTRATION CHARGE ONE (10:00)
[2018-05-30] MEDS: ACETAMINOPHEN 325 MG TAB PO PRN ×2 (10:48→16:09)
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
--- NOTE | 2018-05-30 16:02 | Hospitalist Progress Note ---
Date of Service May 30, 2018 Assessment & Plan (1) Seizures: - Pt reports he has never had "seizures like this" but would not elaborate ; reported H/O seizure disorder - Is currently undergoing a 303 at the [facility] for suicidal thoughts and ETOH abuse and has been there for about 9 days now and does not appear to be experiencing ETOH withdrawal - Possibly induced from abrupt cessation of Clonazepam with high doses of Seroquel reducing seizure threshold? - Will continue Keppra 1000 mg today and convert to Keppra 750 mg BID; avoid benzodiazepines other than for breakthrough seizure activity - MRI Brain pending - Neurology consulted - discussed with Dr. Tubbs - plan as above Present on Admission?: Yes (2) Alcohol abuse: - Is about 9 days since arrival to the [facility] - does not appear to be experiencing ETOH withdrawal at this time - Thiamine 100 mg daily and Folic Acid 1 mg daily - Was drinking approx. 10 beers/day; Completed a withdrawal protocol/taper at the [facility] Present on Admission?: Yes (3) Schizophrenia: - Schizophrenia with anxiety and depression/numerous psychiatric admissions - no current suicidal thoughts/plans - Fluoxetine 40 mg daily; Soldier 450 mg BID; Seroquel 50 mg BID and reduced to 700 mg HS - Psychiatry following - appreciate input and medication adjustments Present on Admission?: Yes (4) DVT prophylaxis: - Disposition: He is currently a 303 at the [facility]; Await MRI and monitor on Keppra; likely can be discharged tomorrow pending no acute changes Subjective Patient reports feeling a lot better during my visit now that he ate lunch. States he ate it all except his asparagus due to not having his teeth He reports some head pain and pain at the laceration on the RLE which is healing He is worried about his clothes and cigarettes at the [facility]. Also fixated on his Clonazepam being stopped "cold turkey" He tells me he has never had seizures before. He is worried he will have his panic attacks again now that he is off this. He denies suicidal thoughts or homicidal thoughts. Wants to take a nap. States he was due to be discharged from the [facility] on Monday so hoping to get back there soon. Constitutional: + fatigue; no fever and no chills Eyes: no worsening vision Ear, Nose, Mouth, Throat: no dry mouth, no sore throat and no dysphagia Respiratory: no cough and no dyspnea Cardiovascular: no chest pain and no palpitations Gastrointestinal: no abdominal pain, no nausea, no vomiting, no constipation and no diarrhea/loose stools Genitourinary (Male): no dysuria multiple areas of discomfort; R forehead, RLE leg Physical Exam 2 Vital Signs (Past 24 Hours): Last Vital Signs Temp 36.8 C 05/30/18 11:19 Pulse 76 05/30/18 11:19 Resp 18 05/30/18 11:19 BP 126/76 05/30/18 11:19 Pulse Ox 96 05/30/18 11:19 Constitutional: no acute distress and not ill appearing Eyes: + anicteric sclerae ENMT: Ears: no hearing impairment Throat: uvula midline Neck: trachea midline Respiratory: normal respiratory effort, lungs clear to auscultation Cardiovascular: Rate/Rhythm: regular rate and regular rhythm Heart Sounds: no murmur Gastrointestinal (Abdomen): Inspection/Auscultation: normal bowel sounds Percussion/Palpation: abdomen soft; abdomen nontender and no guarding Musculoskeletal: Head/Neck/Chest: normocephalic, head atraumatic and neck supple Skin: no rashes, warm and dry (scattered ecchymosis of R forearm/forehead/ healing laceration of RLE) Neurologic: moves all extremities Speech / Cognition: + abnormal speech Motor/Sensory: no tremor Psychiatric: A+Ox3, euthymic affect Apperance: + disheveled Eye Contact : + fair eye contact Motor Behavior: n tremor Speech: normal rate/rhythm/ volume of speech Affect: + flat affect Suicidal Thoughts: denies suicidal thoughts Homicidal Thoughts: denies homicidal thoughts Insight: + poor insight Judgement: + poor judgement
--- NOTE | 2018-05-30 18:04 | XRay Report ---
ORBIT RADIOGRAPHS 3 VIEWS HISTORY: pre-MRI screening. COMPARISON: None. FINDINGS: There are no radiopaque foreign bodies identified within the orbits. IMPRESSION: No radiopaque foreign bodies identified within the orbits. Electronically signed by: Derek Grossman M.D. 05/30/2018 6:03 PM
--- NOTE | 2018-05-30 18:08 | XRay Report ---
XR KUB CLINICAL HISTORY: Screening procedure prior to MRI. SEIZURE COMPARISON STUDY: No previous studies for comparison. FINDINGS: There is no pathologic bowel dilatation. There is a 5 cm focus of heterotopic ossification located superior to the left greater trochanter. No metallic implants or neurostimulator leads are vi sualized. There is a 6 mm calcification projected over the right iliac bone. It is not possible to de termine on this single projection whether this represents an abdominal calcification, or bone island. Linear lucencies within the lateral soft tissues of the right flank, likely represent visualization of fat bundles although subcutaneous air cannot be excluded with certainty IMPRESSION: 1. No evidence of pathologic bowel dilatation 2. No abdominal contraindications to MRI. Electronically signed by: Derek Grossman M.D. 05/30/2018 6:06 PM
[2018-05-30] MEDS ORDERED: GADOBUTROL 65ML VIAL IV PRN (18:48)
--- NOTE | 2018-05-30 19:01 | Magnetic Resonance Report ---
MRI OF THE BRAIN WITHOUT AND WITH IV CONTRAST CLINICAL HISTORY: Seizures TRAUMA COMPARISON STUDY: Noncontrast head CT dated 05/29/2018 TECHNIQUE: MRI of the brain was performed from the vertex to the skull base utilizing various T1 and T2 weighted sequences. Following the IV administration of 9 mL of Gadavist contrast, additional enhan nathan images were obtained. FINDINGS: Sagittal T1, axial diffusion, proton density and T2 weighted axial, coronal FLAIR, and pre and post a xial T1-weighted images were acquired. These were supplemented with post gadolinium coronal T1 weight ed images. No intra or extra-axial mass lesions are visualized. Axial diffusion-weighted images reveal no evidence of acute or subacute infarction. There is no evidence of ventricular dilatation. Proton density T2-weighted and FLAIR images reveal scattered foci of increased T2 signal within the w willam matter, likely on a small vessel basis. The largest lesion is located within the right frontal w willam matter measuring 4 mm. There are no abnormal flow voids. There is no evidence of pathologic enhancement. There is a right frontal scalp contusion. IMPRESSION: 1. Right frontal scalp contusion 2. No acute intracranial findings 3. No evidence of acute or subacute infarction 4. No evidence of intracranial mass 5. Foci of increased T2 signal within the white matter likely on a small vessel basis Electronically signed by: Derek Grossman M.D. 05/30/2018 6:59 PM
[2018-05-30] MEDS ORDERED: levETIRAcetam 500 MG TAB PO ONE (21:00)
[2018-05-30] MEDS ORDERED: QUETIAPINE FUMARATE 200 MG TAB PO SCH ×2 (21:00)
[2018-05-31 07:21] LABS: Basophils # (auto) 0.05 K/uL (0-0.2); Basophils % (auto) 0.7 %; Eosinophils # (auto) 0.19 K/uL (0-0.5); Eosinophils % (auto) 2.8 %; Hematocrit (blood only) 39.8 % (42-52); Hemoglobin 13.9 g/dL (14.0-18.0); Immature Granulocytes # (auto) 0.02 K/uL (0.00-0.02); Immature Granulocytes % (auto) 0.3 %; Lymphocytes # (auto) 1.74 K/uL (1.2-3.4); Lymphocytes % (auto) 25.6 %; Mean Corpuscular Hgb Conc 34.9 g/dL (32-36); Mean Corpuscular Volume 98.8 fL (80-100); Monocytes # (auto) 0.73 K/uL (0.11-0.59); Monocytes % (auto) 10.7 %; Neutrophils # (auto) 4.08 K/uL (1.4-6.5); Neutrophils % (auto) 59.9 %; Platelet Count 242 K/uL (130-400); RDW Coefficient of Variation 15.4 % (11.5-14.5); RDW Standard Deviation 55.8 fL (36.4-46.3); Red Blood Count 4.03 M/uL (4.7-6.1); White Blood Count 6.81 K/uL (4.8-10.8)
[2018-05-31 07:31] LABS: Prothrombin Time 10.3 Seconds (9.0-12.0)
[2018-05-31] MEDS: THIAMINE HCL 100 MG TAB PO SCH (08:08)
[2018-05-31] MEDS: QUETIAPINE FUMARATE 25 MG TABLET PO SCH ×2 (08:09→13:01)
[2018-05-31] MEDS: LITHIUM CARBONATE 450 MG TABCR PO SCH (08:09)
[2018-05-31 08:10] LABS: Albumin Level 3.1 gm/dl (3.4-5.0); BUN Creatinine Ratio 10.1 (10-20); Calcium 8.7 mg/dl (8.5-10.1); Creatinine Clr Calc Pharmacy 104.1 ml/min; Est GFR (African American) 112.3; Est GFR (Non-African American) 96.9; Magnesium 2.5 mg/dl (1.8-2.4); Potassium 3.9 mmol/L (3.5-5.1)
[2018-05-31] MEDS: MULTIVITAMIN TAB PO SCH (08:11)
[2018-05-31] MEDS: FLUOXETINE HCL 20 MG CAP PO SCH (08:11)
[2018-05-31] MEDS: cloNIDine HCl 0.1 MG TAB PO SCH (08:11)
[2018-05-31 08:13] LABS: Bilirubin,Total 0.4 mg/dl (0.2-1); Globulin 3.2 gm/dl (2.5-4.0); Total Protein 6.3 gm/dl (6.4-8.2)
[2018-05-31] MEDS ORDERED: levETIRAcetam 250 MG TAB PO SCH (09:00)
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
--- NOTE | 2018-05-31 15:59 | Discharge Summary ---
Date of Service May 31, 2018 Admission HPI Per Admitting Provider The patient is a 52-year-old male presently admitted to [facility] on 303, with a past medical history including seizure disorder and schizophrenia, who was noted to have a seizure while outside smoking a cigarette. It is unknown how long ago his last seizure was, but is not currently taking seizure medications. He was in his usual state of health up until this event. In the emergency department, consult was made by Dr. Rosenbaum with neurology Dr. Tubbs, and the patient was given Keppra 1000 mg IV, with plans to admit the patient on Keppra thousand milligrams IV every 12 hours. Patient was noted to have significantly nonstop speech, which is not usual for him, and he was given Lorazepam 1 mg IV by the ED staff, and shortly thereafter went to sleep Principal Diagnosis Seizure Activity Discharge Exam Constitutional no acute distress and not ill appearing Eyes + anicteric sclerae ENMT Ears: no hearing impairment Throat: uvula midline Neck trachea midline Respiratory normal respiratory effort, lungs clear to auscultation Cardiovascular Rate/Rhythm: regular rate and regular rhythm Heart Sounds: no murmur Gastrointestinal (Abdomen) Inspection/Auscultation: normal bowel sounds Percussion/Palpation: abdomen soft; abdomen nontender and no guarding Musculoskeletal Head/Neck/Chest: normocephalic, head atraumatic and neck supple Skin no rashes, warm and dry (scattered ecchymosis of R forearm/forehead/healing laceration of RLE) Neurologic moves all extremities Speech / Cognition: normal speech Motor/Sensory: no tremor Psychiatric A+Ox3, euthymic affect Apperance: + disheveled Eye Contact: + fair eye contact Motor Behavior: n tremor Speech: normal rate/rhythm/volume of speech Affect: + flat affect Suicidal Thoughts: denies suicidal thoughts Homicidal Thoughts: denies homicidal thoughts Insight: + poor insight Judgement: + poor judgement Discharge Data Allergies Allergy/AdvReac Type Severity Reaction Status Date / Time fluphenazine [From Prolixin] Allergy Unknown Unknown Verified 05/29/18 19:37 haloperidol [From Haldol] Allergy Unknown Unknown Verified 05/29/18 19:37 Consultations 05/29/18 20:05 ED Decision to Admit Stat 05/29/18 23:06 Consult Case Management - Discharge Planning Routine Consult Neurology Routine 05/29/18 23:25 Consult Psychiatry Routine Ordered Studies MRI OF THE BRAIN WITHOUT AND WITH IV CONTRAST FINDINGS: Sagittal T1, axial diffusion, proton density and T2 weighted axial, coronal FLAIR, and pre and post axial T1-weighted images were acquired. These were supplemented with post gadolinium coronal T1 weighted images. No intra or extra-axial mass lesions are visualized. Axial diffusion-weighted images reveal no evidence of acute or subacute infarction. There is no evidence of ventricular dilatation. Proton density T2-weighted and FLAIR images reveal scattered foci of increased T2 signal within the white matter, likely on a small vessel basis. The largest lesion is located within the right frontal white matter measuring 4 mm. There are no abnormal flow voids. There is no evidence of pathologic enhancement. There is a right frontal scalp contusion. IMPRESSION: 1. Right frontal scalp contusion 2. No acute intracranial findings 3. No evidence of acute or subacute infarction 4. No evidence of intracranial mass 5. Foci of increased T2 signal within the white matter likely on a small vessel basis Hospital Course (1) Seizures: - Pt reports he has never had "seizures like this" but would not elaborate ; reported H/O seizure disorder - Is currently undergoing a 303 at the [facility] for suicidal thoughts and ETOH abuse and has been there for about 9 days and does not appear to be experiencing ETOH withdrawal - Possibly induced from abrupt cessation of Clonazepam with high doses of Seroquel reducing seizure threshold? Maybe Clonazepam was masking seizures? - Continue Keppra 750 mg BID; avoid benzodiazepines other than for breakthrough seizure activity - MRI Brain unremarkable for acute findings; small vessel disease with scattered foci in white matter (largest is 4 mm in R Frontal white matter) - Neurology consulted - discussed with Dr. Tubbs - plan as above (2) Alcohol abuse: - Is about 9 days since arrival to the [facility] - does not appear to be experiencing ETOH withdrawal at this time - Thiamine 100 mg daily and Folic Acid 1 mg daily - Was drinking approx. 10 beers/day; Completed a withdrawal protocol/taper at the [facility] - Plan is to return to the [facility] (3) Schizophrenia: - Schizophrenia with anxiety and depression/numerous psychiatric admissions - no current suicidal thoughts/plans - Mood seems stable and is awake/alert and oriented - Fluoxetine 40 mg daily; Sylvester 450 mg BID; Seroquel 50 mg BID and reduced to 700 mg HS - Psychiatry following - appreciate input and medication adjustments Total Time Total Time Spent Total Time Spent (In Minutes): Greater than 30 minutes Discharge Plan Discharge Items Patient Disposition: Transfer Behavioral Health Fac Reason For Visit: SEIZURE ACTIVITY Discharge Diagnosis: Seizure Activity Discharge Goals: Decrease discomfort Activity: Resume your previous activity Non-emergency contact: Primary Care Provider and Psychiatrist Call non-emergency contact if: you have any medication questions, your symptoms worsen and you have a fever Diet: Regular Addtl Provider Instructions: Seizures: - Pt reports he has never had "seizures like this" but would not elaborate. So not completely sure if this was new onset vs old issue - Is currently undergoing a 303 at the [facility] for suicidal thoughts and ETOH abuse and has been there for about 9 days now and does not appear to be experiencing ETOH withdrawal - Possibly induced from abrupt cessation of Clonazepam with high doses of Seroquel and other psychiatric medications reducing seizure threshold? Maybe Clonazepam was masking some seizure activity? - MRI was negative for acute findings or masses; scattered small foci suggesting small vessel disease in white matter (largest 4mm in R frontal white matter) - Plan is to continue Keppra 750 mg BID - Now that he has been on Clonazepam would recommend avoiding controlled substances other than for breakthrough seizure activity if necessary -Neurology consulted - discussed with Dr. Tubbs - plan as above Alcohol abuse/Polysubtance abuse: - Is about 10 days since arrival to the [facility] - does not appear to be experiencing ETOH withdrawal at this time - Thiamine 100 mg daily and Folic Acid 1 mg daily - Was drinking approx. 10 beers/day; Completed a withdrawal protocol/taper at the [facility] Schizophrenia: - Mood appears stable. He is alert and oriented and speech is calm and thought process seems to be acceptable. Not lethargic and not exhibiting pressured speech or agitation. - Schizophrenia with anxiety and depression/numerous psychiatric admissions - no current suicidal thoughts/plans - Fluoxetine 40 mg daily; Sylvester 450 mg BID (lithium level < 0.2); Seroquel 50 mg BID and reduced to 700 mg HS - Psychiatry followed - plan as above Prescriptions: New levetiracetam 500 mg tablet 750 mg PO BID 30 Days Qty: 90 RF: 0 Continue multivitamin Tablet 1 tab PO QAM RF: 0 thiamine HCl (vitamin B1) 100 mg Tablet 100 mg PO QAM RF: 0 folic acid 1 mg Tablet 1 mg PO QAM RF: 0 fluoxetine 20 mg Capsule 40 mg PO QAM RF: 0 clonidine HCl 0.1 mg Tablet 0.1 mg PO BID RF: 0 lithium carbonate 450 mg Tablet Extended Release 450 mg PO AMHS RF: 0 quetiapine [Seroquel] 50 mg Tablet 50 mg PO BID RF: 0 acetaminophen 325 mg Tablet 650 mg PO Q4H PRN (Reason: Pain) RF: 0 magnesium hydroxide [Milk of Magnesia] 400 mg/5 mL Suspension 80 meq PO DAILY PRN (Reason: Constipation) RF: 0 bismuth subsalicylate [Pepto-Bismol] 262 mg Tablet,Chewable 524 mg PO DIRECTED PRN (Reason: Diarrhea) RF: 0 Mylanta liquid 30 ml PO Q4H PRN (Reason: Gastric Distress) RF: 0 Changed quetiapine [Seroquel] 400 mg Tablet 700 mg PO HS 14 Days Qty: 24.5 RF: 0 Stand-Alone Forms: [facility] Discharge Orders: Discharge Order (Routine); Ordered 05/31/18 Ordered By: Ludivina Maciel Skilled Items DNR: No Admission Data Admit Date/Time: 05/29/18 21:55 Attending Provider: Guero Khan Admit Provider: Jacob John Primary Care Provider: Temi Mejia Other Providers: Jacob John ; Kenny Tubbs III ; Mason Hays Service: Telemetry Other Interventions: Discharge Summary Assessment (RN) Last Done: 05/31/18 13:33 Pending Studies at Discharge: No DC Date/Time DO NOT enter until pt leaves facility: 05/31/18 14:13
== END 2018-05-31 14:13 | DRG 101 ==
LOC: ED 17:40 → SUATTDRO 21:55 → 2W 21:55